=== PATIENT | female | born 1985 | race Caucasian/White ===

== ENCOUNTER 2024-07-15 14:15 | Outpatient (AMB) | payer OTHER, SELFPAY ==
[2024-07-15 14:25] VITALS: BP 125/85; PULSE 95; RESP 16; TEMP 36.8; O2SAT 98; BMI 41.9
--- NOTE | 2024-07-15 14:25 | GYNCLNT_ITS ---
Vital Signs 07/15/24 14:25 Height 1.68 m Height Method Stated Weight 117.934 kg Weight Measurement Method Standing Scale BMI 41.9 BP 125/85 H Blood Pressure Source Automatic Cuff Blood Pressure Location Left Upper Arm Position Sitting Respiration 16 Pulse 95 Pulse Source Monitor Temp 98.2 F Temp Source Oral Pulse Oximetry (%) 98 Oxygen Delivery Method Room Air Allergies/Home Meds Allergies & Medications Allergies No Known Allergies Allergy (Verified 07/15/24 14:27) Medication Reconciliation No Known Home Medications 07/15/24 [History Confirmed 07/15/24] Intake Visit Data Collection New Patient or Established: Established Patient (seen at [facility] within 3 years) Reason for Visit:: Annual gynecological exam Seen by Clinical Staff ONLY (RN/MA): No Outreach And Education Social Worker Required: No Do You Feel Safe at Home: Yes Authorities Contacted: N/A PCP or OBGYN visit in last 3 months: Yes Hx Now: No Are you currently on any form of Control: No Pain Present Currently: No Pain Scale Used: Austin-Bell/Numerical Pain scale:: 0 Smoking Status Smoking Status: Never smoker 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 1. Little interest or pleasure in doing things: not at all 2. Feeling down, depressed, or hopeless: not at all Total score: 0 PHQ-9 3. Trouble falling or staying asleep, or sleeping too much: Not at all 4. Feeling tired or having little energy: Not at all 5. Poor appetite or overeating: Not at all 6. Feeling bad about yourself - or that you are a failure or have let yourself or your family down: Not at all 7. Trouble concentrating on things, such as reading the newspaper or watching television: Not at all 9. Thoughts that you would be better off or of hurting yourself in some way: Not at all If you checked off any problems, how difficult have these problems made it for you to do your work, take care of things at home, or get along with other people?: not difficult at all Source: Developed by Drs. Silas Casiano, Kimberlee Stein, Jose Gonzales and colleagues, with an educational sara from [employer] Depression screen completed yes Social History Living Situation History Marital Status: Lives With: Family Housing: House Housing Other:: Pt has an 8 y/o daughter, a 5 y/o son and a 15 y/o stepson Tobacco History Smoking Status: Never smoker Alcohol History Alcohol Intake: Never Domestic Abuse History Do You Feel Safe at Home: Yes Past Medical History Past Medical History Have you ever been diagnosed with any of the following: Neurological Problems Seizures: No Migraine: No Cardiology Problems Cardiac Arrhythmia: No Heart Murmur: No Hypercholesterolemia: No Hypertension: No Respiratory Problems Asthma: No Sleep Apnea: No Stomache/Intestinal Problems Celiac Disease: No Gall Bladder Disease: No Irritable Bowel: No Obesity: Yes (Current BMI 42) Genital/Urinary Problems Chronic Kidney Disease: No Kidney Stones: No Reproductive Problems Breast Cancer: No Endometriosis: No Fibroids: No Genital Herpes: No Gonorrhea: No Pelvic Inflammatory Disease: No Polycystic Ovarian Syndrome: No Previous Pregnancies: Yes ( x 2 in the past second one with a tubal ligation) Musculoskeletal Problems Arthritis: No Rheumatoid Arthritis: No Fibromyalgia: No Head,Eye,Nose,Throat Problems Glaucoma: No Endocrine Problems Diabetes Mellitus Type 2: No Hyperthyroidism: No Hypothyroidism: No Systemic Lupus Erythematosus: No Blood Problems Anemia: No Psychologic Problems Depression: No Anxiety: No Attention Deficit Disorder: No Other Problems Hospitalization: Yes (For x 2) Autoimmune Disease: No Cosmetic Surgery: No Blood Transfusions: No Anesthesia Reactions: No Surgical History Appendectomy: No Bariatric Surgery: No Breast Surgery: No Cholecystectomy: No Additional Surgical History: NovaSure endometrial ablation x 2 tubal ligation with second History of Present Illness HPI Narrative Patient is a very pleasant 38-year-old -0-0-2 who I used to see in [place]. She states she has been my patient for 18 years. She has a history of x 2 in the past. Her daughter Lexy is 8, her son Clement is 5. She has a stepson who is 15. She is requesting all screening lab work performed. She states her cycles are light since her ablation and she only spots a couple days with her cycles. She would like a vitamin D level and magnesium level checked also. She has no gynecological complaints and is turning 39 soon. She denies a ny dysparunia or dysmenorrhea. She reports sometimes she has some hip, back and body pain with her light cycles. She denies hot flashes ,night sweats, or difficulty sleeping. Review of Systems Review of Systems Systems Reviewed: All systems reviewed, normal except as documented Exam General Limitations: no limitations General Appearance: alert, in no apparent distress, comfortable, cooperative, healthy appearing and well groomed Neck Neck exam: Present normal inspection, full ROM and trachea midline Chest Chest inspection: Present normal inspection and symmetric chest wall rise Exp Chest Breast: bilateral: other (Normal breast exam bilaterally) Resp Respiratory exam: Present normal lung sounds bilaterally Card Cardiovascular exam: Present regular rate, normal rhythm and normal heart sounds Abdominal Abdominal exam: Present soft and normal bowel sounds External exam: Present normal external exam Speculum exam: Present normal speculum exam Bimanual exam: Present normal bimanual exam Extremities Extremities exam: Present normal inspection and full ROM Psych Psychiatric exam: Present normal affect and normal mood Skin Skin exam: Present warm, dry, intact and normal color Assessment & Plan Diagnosis / Problem List (1) Women's annual routine gynecological examination: Status: Acute Plan: Pap with cotesting to HPV the was performed. Breast exam done encouraged. Mammogram ordered. Screening lab work ordered. Follow-up in 1 year or sooner if other gynecological needs arise. 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
== END 2024-07-15 15:03 | disposition home or self-care (01) ==
LOC: HODSOBC 14:15
PROVIDERS: PCP Internal Medicine; Referring Provider Internal Medicine; Supervising Provider Obstetrics & Gynecology; Visit Provider Obstetrics & Gynecology
DX: Z01.419 Encounter for gynecological examination (general) (routine) without abnormal findings (principal); Z11.51 Encounter for screening for human papillomavirus (HPV)
CPT/HCPCS: 99203; Q0091; G0463